=== PATIENT | male | born 1960 | race Two or more races ===

== ENCOUNTER 2025-02-27 11:39 | Outpatient (REF) | payer BC, SELFPAY | END 2025-02-27 11:40 | disposition home or self-care (01) | LOC: LBN 11:39 | PROVIDERS: Visit Provider Physician Assistant Medical | DX: L08.89 Other specified local infections of the skin and subcutaneous tissue (principal) | CPT/HCPCS: 87070; 87205 ==

== ENCOUNTER 2025-07-30 09:36 | Outpatient (CLI) | payer BC, SELFPAY | END 2025-07-30 09:37 | disposition home or self-care (01) | PROVIDERS: Visit Provider Family Medicine | DX: Z77.011 Contact with and (suspected) exposure to lead (principal) | CPT/HCPCS: 36415; 83655 ==